=== PATIENT | female | born 1985 | race Caucasian/White ===

== ENCOUNTER 2025-02-03 16:09 | Emergency (ER) | payer MEDICAID, SELFPAY ==
[2025-02-03 16:13] VITALS: BP 130/68; PULSE 75; TEMP 36.8; O2SAT 95; BMI 31.2
--- NOTE | 2025-02-03 16:24 | ED.GENADUL1 ---
HPI HPI - General Adult General Chief complaint: Urogenital-Female Stated complaint: UTI Time Seen by Provider: 02/03/25 16:14 Source: patient Mode of arrival: walk-in Limitations: no limitations History of Present Illness HPI narrative: 39-year-old female presents to the emergency department for a chief complaint of urinary frequency and dysuria. It started 3 days ago and she bought some [id number] medication which did not seem to help much but turned her urine orange. No fever or unusual back pain. No vomiting. Related Data Previous Rx's �Medication �Instructions �Recorded cephalexin 500 mg capsule 500 mg PO TID 7 days #21 caps 02/03/25 Allergies Allergy/AdvReac Type Severity Reaction Status Date / Time No Known Drug Allergies Allergy Verified 02/03/25 16:13 Opioid HPI Opioid Management Most Recent Opioid Data: Last Pain Scale 4 Today, 16:13 Review of Systems ROS Narrative A ten point review of systems is negative except as noted above. PFSH PFSH Social History Little interest or pleasure in doing things: not at all Feeling down, depressed, or hopeless: not at all Exam Narrative Exam Narrative: Nurses note and vital signs reviewed and patient is not hypoxic. General: The patient appears well and in no apparent distress. Patient is sitting comfortably on a chair. Skin: Warm, dry, no pallor noted. There is no rash noted. Head: Normocephalic, atraumatic Eye: Normal conjunctiva, no drainage Ears, Nose, Mouth, and Throat: oral mucosa is moist. Nares patent. Cardiovascular: Regular Rate and Rhythm Respiratory: Patient is in no distress, no accessory muscle use, lungs are clear to auscultation, no wheezing, rales or rhonchi Back: non-tender GI: Soft and nontender Musculoskeletal: The patient has no evidence of calf tenderness, no pitting edema, symmetrical pulses noted bilaterally Neurological: A&O, normal speech Psychiatric: Cooperative Constitutional Vital Signs, click to edit/add: Last Vital Signs Temp 98.2 F 02/03/25 16:13 Pulse 75 02/03/25 16:13 Resp 18 02/03/25 16:13 BP 130/68 02/03/25 16:13 Pulse Ox 95 02/03/25 16:13 O2 Del Method Room Air 02/03/25 16:13 Course Vital Signs Vital signs: Vital Signs Temperature 98.2 F 02/03/25 16:13 Pulse Rate 75 02/03/25 16:13 Respiratory Rate 18 02/03/25 16:13 Blood Pressure 130/68 02/03/25 16:13 Pulse Oximetry 95 02/03/25 16:13 Oxygen Delivery Method Room Air 02/03/25 16:13 Temperature 98.2 F 02/03/25 16:13 Pulse Rate 75 02/03/25 16:13 Respiratory Rate 18 02/03/25 16:13 Blood Pressure 130/68 02/03/25 16:13 Pulse Oximetry 95 02/03/25 16:13 Oxygen Delivery Method Room Air 02/03/25 16:13 Medical Decision Making MDM Narrative Medical decision making narrative: UTI is identified. She was started on Keflex here today and prescribed same. Treatment diagnosis and follow-up were discussed with the patient. Differential Diagnosis Differential Diagnosis: UTI, cystitis Lab Data Lab results reviewed: Yes I reviewed the patient's lab results Labs: Lab Results 02/03/25 Range/Units 16:24 Urine Color Dk. orange (YELLOW) Urine Clarity Clear (CLEAR) Urine pH Color interference A (5.0-9.0) Ur Specific [place] 1.020 (1.005-1.025) Urine Protein Color interference A (NEG/TRACE) mg/dL Urine Glucose (UA) Color interference A (NEGATIVE) mg/dL Urine Ketones Color interference A (NEGATIVE) mg/dL Urine Occult Blood Color interference A (NEGATIVE) Urine Nitrite Color interference A (NEGATIVE) Urine Bilirubin Color interference A (NEGATIVE) Urine Urobilinogen Color interference A (0.2-1.0) EU/dL Ur Leukocyte Esterase Color interference A (NEGATIVE) Urine RBC 50-75 A (0-2) #/HPF Urine WBC 10-20 A (NONE SEEN) #/HPF Ur Squamous Epith Cells Few A (NONE/RARE) #/LPF Urine Crystals None seen (None Seen) #/HPF Urine Bacteria Moderate A (NONE SEEN) #/HPF Urine Casts None seen (NONE SEEN) #/LPF Urine Mucus Trace A (NONE SEEN) Ur [place] [place], Qual Negative (NEGATIVE) Discharge Plan Discharge Chief Complaint: Urogenital-Female Clinical Impression: Urinary tract infection Patient Disposition: Home, Self-Care Time of Disposition Decision: 16:41 Condition: Good Mode of Transportation: Private Vehicle Prescriptions / Home Meds: New cephalexin 500 mg capsule 500 mg PO TID 7 Days Qty: 21 0RF Print Language: Hungarian Instructions: Urinary Tract Infection in Women (ED) Referrals: Physician,Non-Staff, MD [Primary Care Provider] - 1 week
[2025-02-03 16:33] LABS: Glucose Urine UA COLOR INTERFERENCE mg/dL (NEGATIVE); HCG Qualitative Urine* NEGATIVE (NEGATIVE)
[2025-02-03 16:37] LABS: Cast Seen? NONE SEEN #/LPF (NONE SEEN); Crystals Seen? None Seen #/HPF (None Seen); Urine Culture Indicated YES-FRMC
[2025-02-03] MEDS: CEPHALEXIN 500 MG CAPSULE PO (17:03)
== END 2025-02-03 17:05 | disposition home or self-care (01) ==
PROVIDERS: Emergency Provider Emergency Medicine
DX: N39.0 Urinary tract infection, site not specified (principal)
CPT/HCPCS: 81001; 84703; 87086; 87088; 87186; 99283